=== PATIENT | male | born 1975 | race Caucasian/White ===

== ENCOUNTER → 2020-05-08 | Outpatient (CLI) | payer OTHER ==
[~2020-05-08] MED LIST: ASPIRIN 325MG325 MG PO; HYDROCODON-ACE1 EAC2 PO; IBUPROFEN800 MG PO; MAVYRET PO; NEURONTIN600 MG PO; NORCO 5-325 TA1 EACH PO; PERCOCET 7.5-31 EACH PO; SULFAMETHOXAZO1 EACH PO; VALACYCLOVIR1000 MG PO; VITAMIN D21250 MCG PO
[2020-05-08 14:36] LABS: HEMOGLOBIN 15.4 gm/dl (14.0-17.5); RED BLOOD COUNT 4.69 M/UL (4.20-5.50); WHITE BLOOD COUNT 8.7 K/UL (4.5-11.0)
[2020-05-08 14:54] LABS: BUN/CREATININE RATIO 11 (0-10)
== END ==
LOC: OPSV2 12:21 → EDSTATUS 12:30
PROVIDERS: Orthopaedic Surgery
DX: Z01.812 Encounter for preprocedural laboratory examination (principal); M87.88 Other osteonecrosis, other site
CPT/HCPCS: 36415; 80048; 81001; 85025; 87081

== ENCOUNTER → 2020-05-21 | Outpatient (CLI) | payer OTHER ==
[2020-05-21 13:52] LABS: BUN/CREATININE RATIO 17 (0-10)
== END ==
LOC: LAB 12:37
PROVIDERS: Orthopaedic Surgery
DX: M87.052 Idiopathic aseptic necrosis of left femur (principal)
CPT/HCPCS: 36415; 80048; 86850; 86900; 86901

== ENCOUNTER 2020-05-22 09:29 | Inpatient (IN) | payer OTHER ==
[~2020-05-22] VITALS: Ht 190.5 cm; Wt 116.1 kg
[~2020-05-22 09:29] MED LIST changes: -ASPIRIN 325MG325 MG PO; -HYDROCODON-ACE1 EAC2 PO; -IBUPROFEN800 MG PO; -MAVYRET PO; -NEURONTIN600 MG PO; -PERCOCET 7.5-31 EACH PO; -SULFAMETHOXAZO1 EACH PO; -VALACYCLOVIR1000 MG PO; -VITAMIN D21250 MCG PO
[2020-05-22] MEDS ORDERED: NEURONTIN600 MG PO (10:21)
[2020-05-22] MEDS ORDERED: HYDROCODON-ACE1 EAC2 PO (10:22)
[2020-05-22] MEDS ORDERED: MAVYRET PO (10:24)
[2020-05-22] MEDS ORDERED: VALACYCLOVIR1000 MG PO (10:25)
[2020-05-22] MEDS ORDERED: PERCOCET 7.5-31 EACH PO (17:44)
[2020-05-22] MEDS ORDERED: IBUPROFEN800 MG PO (18:26)
[2020-05-22] MEDS ORDERED: VITAMIN D21250 MCG PO (18:26)
[2020-05-23 03:38] LABS: HEMOGLOBIN 13.9 gm/dl (14.0-17.5); RED BLOOD COUNT 4.31 M/UL (4.20-5.50); WHITE BLOOD COUNT 25.3 K/UL (4.5-11.0)
[2020-05-23 04:10] LABS: BUN/CREATININE RATIO 16 (0-10)
[2020-05-24 07:02] LABS: HEMOGLOBIN 11.6 gm/dl (14.0-17.5); RED BLOOD COUNT 3.59 M/UL (4.20-5.50); WHITE BLOOD COUNT 15.1 K/UL (4.5-11.0)
[2020-05-24 07:17] LABS: BUN/CREATININE RATIO 16 (0-10)
[2020-05-25 05:21] LABS: HEMOGLOBIN 11.3 gm/dl (14.0-17.5); RED BLOOD COUNT 3.52 M/UL (4.20-5.50)
--- NOTE | 2020-05-25 05:22 | NUR ---
At 1845 bedside report I noted the pt IV leaking. I explained that I would need to start another one. Pt refused to have another put in, states he is going home today. He is not recieving any meds through the IV now. Still refuses after education. Dr. Huntley notified.
[2020-05-25 05:36] LABS: WHITE BLOOD COUNT 11.2 K/UL (4.5-11.0)
[2020-05-25 05:48] LABS: BUN/CREATININE RATIO 10 (0-10)
[2020-05-25] MEDS ORDERED: ASPIRIN 325MG325 MG PO (14:25)
[2020-05-26 07:09] LABS: HBSAG SCREEN Negative (Negative); HEP B CORE AB, TOT Negative (Negative); HEP C VIRUS AB >11.0 (0.0-0.9)
[2020-05-26] MEDS ORDERED: SULFAMETHOXAZO1 EACH PO (09:28)
[2020-05-26 10:10] LABS: HIV SCREEN 4TH GENERATION WRFX Non Reactive (Non Reactive)
--- NOTE | 2020-05-26 12:43 | NUR ---
PATIENT INSTRUCTED AT DISCHARGE TO START ASPIRIN 12 HOURS AFTER LAST DOSE OF ELIQUIS. PER DR. SCOTT
== END 2020-05-26 09:57 | disposition home or self-care (01) | DRG 470 ==
LOC: OR 09:29 → EDSTATUS 11:30 → M/S 18:01 → OR 05-24 13:40 → M/S 05-26 09:57
PROVIDERS: Internal Medicine; ADMIT Orthopaedic Surgery
PROC: 0SRB0JA Replacement of Left Hip Joint with Synthetic Substitute, Uncemented, Open Approach (ICD-10-PCS; principal; 2020-05-22 15:00)
PROC: B24BZZZ Ultrasonography of Heart with Aorta (ICD-10-PCS; 2020-05-25)
DX: M87.852 Other osteonecrosis, left femur (principal); F11.20 Opioid dependence, uncomplicated; F17.200 Nicotine dependence, unspecified, uncomplicated; B19.20 Unspecified viral hepatitis C without hepatic coma; F15.90 Other stimulant use, unspecified, uncomplicated; D72.829 Elevated white blood cell count, unspecified
CPT/HCPCS: ECHO; 36415; 71045; 73501; 76000; 80048; 81001; 85025; 85610; 86704; 86706; 86708; 86803; 86850; 86900; 86901; 87040; 87340; 87389; 93306; 93971; 96374; 96375; 97161; 97165; 97535; 99285; C1776; J0690; J1100; J1885; J2001; J2250; J2405; J2704; J2795; J3010; J3370; J7120